=== PATIENT | female | born 1975 | race Caucasian/White ===

== ENCOUNTER 2017-09-18 21:35 | Emergency (ER) | payer BC ==
[~2017-09-18] VITALS: Ht 160 cm; Wt 78.2 kg
[~2017-09-18 21:35] MED LIST: MINASTRIN 24 F1 EACH PO; ZOFRAN ODT4 MG PO
[2017-09-18 22:05] LABS: HEMATOCRIT 38.3 % (36.0-46.0); HEMOGLOBIN 13.2 G/DL (11.9-15.5); MCH 30.4 PG (29.0-34.0); MCHC 34.5 G/DL (30.0-36.0); MCV 88.2 FL (83-99); PLATELET COUNT 294 K/uL (156-360); RBC DIS.WIDTH-CV 11.7 % (11.8-14.6); RBC DIS.WIDTH-SD 37.6 % (39-53); RED BLOOD COUNT 4.34 M/uL (3.80-5.20); WHITE BLOOD COUNT 12.8 K/uL (4.1-10.2)
[2017-09-18 22:15] LABS: ALBUMIN 4.2 g/dL (3.2-4.8); CHLORIDE 105 mEq/L (99-109); POTASSIUM 3.4 mEq/L (3.7-5.4); SODIUM 137 mEq/L (136-147)
[2017-09-18 22:18] LABS: GLUCOSE 205 mg/dL (70-99); TOTAL PROTEIN 7.3 g/dL (6.4-8.3)
[2017-09-18 22:20] LABS: TOTAL BILIRUBIN 0.2 mg/dL (0.0-1.0)
[2017-09-18 22:21] LABS: ALKALINE PHOSPHATASE 71 IU/L (3-129); CREATININE 0.9 mg/dL (0.6-1.3); GFR ESTIMATE (CALCULATED) > 59 mL/min/
[2017-09-18 22:23] LABS: AST (GOT) 18 IU/L (2-34); UREA NITROGEN (BUN) 8 mg/dL (9-23)
[2017-09-18 22:24] LABS: ALT (GPT) 21 IU/L (3-49)
[2017-09-18 22:48] LABS: APPEARANCE CLOUDY ((CLEAR)); BILIRUBIN NEGATIVE; BLOOD LARGE; COLOR YELLOW ((YELLOW)); GLUCOSE (STRIP) NEGATIVE; KETONES 5; LEUKOCYTES SMALL; NITRITE NEGATIVE; PROTEIN (STRIP) 30; SPECIFIC GRAVITY 1.024 (1.000-1.030); UROBILINOGEN 0.2 MG/DL (0.2-1.0)
[2017-09-18 23:04] LABS: BACTERIA 2+ /HPF; EPITHELIAL CELLS 3+ /HPF; MUCUS NONE SEEN /LPF; RED BLOOD CELLS 40-50 /HPF (0-5); UCUL ADDED? YES; WHITE BLOOD CELLS 15-20 /HPF (0-5)
[2017-09-18 23:05] LABS: CALCIUM OXALATE CRYSTALS 2+ /HPF
[2017-09-18] MEDS ORDERED: KEFLEX500 MG PO (23:56)
[2017-09-19] MEDS ORDERED: MOTRIN800 MG PO
[2017-09-19] MEDS ORDERED: NORCO 10/3251 TABLET PO
[2017-09-19 00:34] VITALS: BP 124/83
[2017-09-20] MEDS ORDERED: PRENATAL TABLE1 EACH PO (10:00)
[2017-09-20] MEDS ORDERED: ZYRTEC10 M3 PO (10:01)
[2017-09-20] MEDS ORDERED: FLONASE ALLERG9.9 ML BOTH NARES (10:09)
[2017-09-20] MEDS ORDERED: TYLENOL EXTRA500 MG PO (10:09)
[2017-09-20] MEDS ORDERED: MOTRIN800 MG PO (14:57)
== END 2017-09-19 00:37 | disposition home or self-care (01) ==
LOC: EME 21:35
DX: O03.38 Urinary tract infection following incomplete spontaneous abortion (principal); R03.0 Elevated blood-pressure reading, without diagnosis of hypertension; Z87.442 Personal history of urinary calculi
CPT/HCPCS: 76770; 76801; 80053; 81003; 84702; 85027; 87086; 99281; 99285; J0696; J2405

== ENCOUNTER 2017-09-20 11:53 | Day surgery (SDC) | payer BC ==
[~2017-09-20] VITALS: Ht 160 cm; Wt 77.1 kg
[~2017-09-20 11:53] MED LIST changes: +FLONASE ALLERG9.9 ML BOTH NARES; +KEFLEX500 MG PO; +MOTRIN800 MG PO; +NORCO 10/3251 TABLET PO; +PRENATAL TABLE1 EACH PO; +TYLENOL EXTRA500 MG PO; +ZYRTEC10 M3 PO
[2017-09-20 12:19] LABS: BASOPHIL (%) 0.4 % (0-1); EOSINOPHIL (%) 1.6 % (0-5); EOSINOPHIL COUNT 0.2 K/uL (0-0.3); HEMATOCRIT 39.6 % (36.0-46.0); HEMOGLOBIN 13.6 G/DL (11.9-15.5); IMMATURE GRANULOCYTE (%) 0.3 % (0.0-0.7); LYMPHOCYTE (%) 12.2 % (15-42); LYMPHOCYTE COUNT 1.4 K/uL (1.0-2.8); MCHC 34.3 G/DL (30.0-36.0); MCV 90.2 FL (83-99); MONOCYTE (%) 7.9 % (3-12); MONOCYTE COUNT 0.9 K/uL (0-0.8); NEUTROPHIL (%) 77.6 % (45-76); NEUTROPHIL COUNT 8.6 K/uL (1.8-6.4); PLATELET COUNT 300 K/uL (156-360); RBC DIS.WIDTH-CV 11.8 % (11.8-14.6); RBC DIS.WIDTH-SD 38.8 % (39-53); RED BLOOD COUNT 4.39 M/uL (3.80-5.20)
[2017-09-20 12:23] VITALS: BP 119/69
[2017-09-20] MEDS ORDERED: MOTRIN800 MG PO (14:57)
[2017-09-20 15:30] VITALS: BP 126/65
[2017-09-20 16:21] VITALS: BP 113/77
== END 2017-09-20 16:24 | disposition home or self-care (01) ==
LOC: SDC 11:53
PROVIDERS: Obstetrics & Gynecology
PROC: 10D17ZZ Extraction of Products of Conception, Retained, Via Natural or Artificial Opening (ICD-10-PCS; principal; 2017-09-20)
DX: O02.1 Missed abortion (principal); Z3A.09 9 weeks gestation of pregnancy; K21.9 Gastro-esophageal reflux disease without esophagitis
CPT/HCPCS: 85025; 86850; 86900; 86901; 88305; J1100; J1885; J2250; J2405; J3010; Q0175